=== PATIENT | female | born 1935 | race Caucasian/White ===

== ENCOUNTER 2017-05-26 08:07 | Inpatient (IN) | payer OTHER ==
[~2017-05-26] VITALS: Ht 160 cm; Wt 69.1 kg
[2017-05-26] VITALS (7 sets, daily range): BP systolic 108–170; BP diastolic 50–75
--- NOTE | ~2017-05-26 | EKG ---
[place] [address] [facility] [place] [address] ELECTROCARDIOGRAM REPORT Name: KARANNOLA J Room #: 216-P ADM IN M.R.#: [id number] Admission: 05/26/17 Attend Phys: Cihlo Lopez MD Discharge: Date of : 37 Report #: [id number] THIS REPORT FOR: //name// [facility] ED Test Date: 2017-05-26 Test Time: 08:43:21 Pat Name: NOLA RUSSO Department: Room: 216 Gender: F Exhibit Cleaner: [email or web address] : 1935 Requested By: Pari Arnold Order Number: [id number] MD: Jesse Mooney Measurements Intervals Dexter Rate: 63 P: 68 CO: 143 QRS: -20 QRSD: 150 T: 48 QT: 485 QTc: 497 Interpretive Statements Sinus rhythm Left bundle branch block Compared to ECG 05/16/2004 12:58:48 No significant changes Electronically Signed On 05-26-2017 12:47:23 HYDRAULIC LIFT OPERATOR by Jesse Mooney [email or web address] <ELECTRONICALLY SIGNED> By: Jesse Mooney MD, [facility] 05/26/17 1247 Jesse Mooney MD, [facility] /EPI
[~2017-05-26 08:07] MED LIST: ADULT LOW DOSE81 MG PO; APAP650 PO; CALCITRIOL0.25 MCG PO; CALCIUM OYSTER500 MG PO; FLEXERIL PO; MOBIC15 MG PO; NEURONTIN 300300 M1 PO; PEPCID40 MG PO; PREVACID 30MG C30 M1 PO; PROTONIX40 M2 PO; RESTORIL30 MG PO; SYNTHROID125 MCG PO
[2017-05-26] MEDS ORDERED: DEXILANT60 MG PO (08:49)
[2017-05-26] MEDS ORDERED: CYMBALTA60 MG PO (08:50)
[2017-05-26] MEDS ORDERED: SYNTHROID112 MCG PO (08:50)
[2017-05-26] MEDS ORDERED: LASIX 20 MG TAB20 MG PO (08:51)
[2017-05-26] MEDS ORDERED: ULTRAM 50MG TAB50 MG PO (08:51)
[2017-05-26] MEDS ORDERED: CARVEDILOL3.125 MG PO (08:52)
[2017-05-26] MEDS ORDERED: VITAMIN B-12500 MCG PO (08:54)
[2017-05-26] MEDS ORDERED: VITAMIN D32000 UNI1 PO (08:55)
[2017-05-26 08:57] LABS: HEMATOCRIT 42.5 % (37.0-47.0); HEMOGLOBIN 14.1 gm/dL (12.0-15.0); MCH 29.6 pg (26.0-34.0); MCHC 33.2 g/dL (28.0-37.0); MCV 89.1 fL (80.0-100.0); PLATELET COUNT 211 thou/uL (150-400); RBC 4.77 mil/uL (4.20-5.00); RDW 13.1 % (10.5-14.5); WBC 4.3 thou/uL (4.0-11.0)
[2017-05-26] MEDS ORDERED: PRAVACHOL20 MG PO (08:57)
[2017-05-26] MEDS ORDERED: ZANAFLEX4 MG PO (08:58)
[2017-05-26 09:00] LABS: MANUAL DIFF YES
[2017-05-26 09:06] LABS: ANION GAP 9 mmol/L (7-16); BUN 10 mg/dL (7-18); CALCIUM 8.8 mg/dL (8.5-10.1); CHLORIDE 105 mmol/L (98-107); CO2 27 mmol/L (21-32); GLUCOSE 108 mg/dL (74-106); POTASSIUM 3.3 mmol/L (3.5-5.1); SODIUM 141 mmol/L (136-145)
[2017-05-26 09:15] LABS: ALBUMIN 3.8 g/dL (3.4-5.0); ALKALINE PHOSPHATASE 79 U/L (46-116); DIRECT BILIRUBIN < 0.1 mg/dL (<0.1-0.3); SGOT 69 U/L (15-37); SGPT 29 U/L (30-65); TOTAL BILIRUBIN 0.3 mg/dL (<0.1-1.0); TROPONIN-I < 0.04 ng/mL (<0.06)
[2017-05-26 09:23] LABS: PLATELET ESTIMATE NORMAL; TOTAL CELL COUNT 100
[2017-05-26 10:43] LABS: URINE BILIRUBIN NEGATIVE (Negative); URINE BLOOD TRACE (Negative); URINE COLOR YELLOW; URINE GLUCOSE-RANDOM* NEGATIVE (Negative); URINE KETONES 2+ (Negative); URINE NITRITE NEGATIVE (Negative); URINE PROTEIN (DIPSTICK) NEGATIVE (Negative); URINE SPECIFIC GRAVITY <= 1.005 (1.005-1.035); URINE UROBILINOGEN 0.2 E.U./dl (0.2-1.0)
[2017-05-27 03:59] VITALS: BP 117/46
[2017-05-27 07:38] VITALS: BP 130/49
[2017-05-27 08:59] LABS: MCH 29.8 pg (26.0-34.0); MCHC 33.2 g/dL (28.0-37.0); MCV 89.7 fL (80.0-100.0); RBC 4.01 mil/uL (4.20-5.00); RDW 13.6 % (10.5-14.5); WBC 3.9 thou/uL (4.0-11.0)
[2017-05-27 09:06] LABS: CALCIUM 7.5 mg/dL (8.5-10.1); CREATININE 0.9 mg/dL (0.6-1.0); POTASSIUM 3.7 mmol/L (3.5-5.1)
[2017-05-27 11:30] VITALS: BP 137/59
[2017-05-27 15:30] VITALS: BP 145/50
[2017-05-27 19:32] VITALS: BP 145/62
[2017-05-28 03:20] VITALS: BP 148/64
[2017-05-28 07:26] VITALS: BP 152/64
[2017-05-28] MEDS ORDERED: ONDANSETRON HCL4 M2 PO (09:06)
[2017-05-28 10:09] VITALS: BP 152/64
== END 2017-05-28 10:36 | disposition home or self-care (01) | DRG 392 ==
LOC: ER 08:07 → EROBS 09:27 → 2N 09:27
PROVIDERS: Emergency Medicine; Family Medicine
DX: K52.9 Noninfective gastroenteritis and colitis, unspecified (principal); N17.9 Acute kidney failure, unspecified; E87.6 Hypokalemia; M19.90 Unspecified osteoarthritis, unspecified site; M79.7 Fibromyalgia; R74.0 Nonspecific elevation of levels of transaminase and lactic acid dehydrogenase [LDH]; E89.0 Postprocedural hypothyroidism; Z90.710 Acquired absence of both cervix and uterus; Z85.820 Personal history of malignant melanoma of skin; Z79.899 Other long term (current) drug therapy; Z88.5 Allergy status to narcotic agent; Z88.8 Allergy status to other drugs, medicaments and biological substances
CPT/HCPCS: 10081

== ENCOUNTER → 2017-09-28 | Outpatient (CLI) | payer OTHER ==
[~2017-09-28] MED LIST changes: +CARVEDILOL3.125 MG PO; +CYMBALTA60 MG PO; +DEXILANT60 MG PO; +LASIX 20 MG TAB20 MG PO; +ONDANSETRON HCL4 M2 PO; +PRAVACHOL20 MG PO; +SYNTHROID112 MCG PO; +ULTRAM 50MG TAB50 MG PO; +VITAMIN B-12500 MCG PO; +VITAMIN D32000 UNI1 PO; +ZANAFLEX4 MG PO
[2017-09-28 08:50] LABS: CREATININE 1.1 mg/dL (0.6-1.0)
== END ==
LOC: CAT 05:56
PROVIDERS: Family Medicine
DX: I25.10 Atherosclerotic heart disease of native coronary artery without angina pectoris (principal); K44.9 Diaphragmatic hernia without obstruction or gangrene

== ENCOUNTER → 2019-05-22 | Outpatient (CLI) | payer OTHER | LOC: MRI 14:26 | DX: M47.816 Spondylosis without myelopathy or radiculopathy, lumbar region (principal); M53.86 Other specified dorsopathies, lumbar region; M25.78 Osteophyte, vertebrae; M12.88 Other specific arthropathies, not elsewhere classified, other specified site; M48.062 Spinal stenosis, lumbar region with neurogenic claudication; M51.27 Other intervertebral disc displacement, lumbosacral region ==

== ENCOUNTER → 2019-05-30 | Outpatient (CLI) | payer OTHER ==
[~2019-05-30] VITALS: Ht 162.6 cm; Wt 71.2 kg
[~2019-05-30] MED LIST changes: +MEDROLDOSEPACK PO; +MICROZIDE12.5 MG PO; +NEXIUM20 M1 PO; -SYNTHROID112 MCG PO; +SYNTHROID75 MCG PO; +TOPROL XL25 MG PO
--- NOTE | ~2019-05-30 | HPC ---
[facility] [address] [place] [address] PAIN MANAGEMENT CONSULTATION Name: NOLA RUSSO [id number] Admission: 05/30/19 Attend Phys: Ralph Vera DO Discharge: Date of : 37 Report #: [id number] THIS REPORT FOR: //name// CC: Ralph Lopez MD DATE OF SERVICE: 05/30/2019 REFERRING PHYSICIAN: Chilo Lopez MD CHIEF COMPLAINT: Low back pain, left lower extremity pain with paresthesias. HISTORY OF PRESENT ILLNESS: As you know, patient is an 83-year-old female who has longstanding history of low back pain, left lower extremity pain with paresthesias. There was an exacerbation of symptoms began 03/27/2019. She denies injury or trauma that may have led to symptom occurrence. She has tried [id number] medications without benefit. She has been undergoing physical therapy again without significant benefit. She sought further evaluation through her PCP and she was subsequently referred for MRI due to lack of improvement. MRI showed changes at the L3-L4 and L4-L5 level concerning enough that the patient was then referred to our clinic to discuss treatment options for suspected lumbar radiculopathy. The patient denies injury or trauma that may have led to symptom occurrence. The patient reports today pain is continuous and steady with intermittent exacerbations. She indicates pain is burning, shooting, aching, tender, numbness and tingling when describing pain, places current pain score at 8/10, daily average at 8/10, worst pain has been is 10/10. The patient states pain is exacerbated with "being on my feet." Improves with "lying flat on my back." She has been referred to our service to discuss treatment options for suspected lumbar radiculopathy. PAST MEDICAL HISTORY: 1. Osteoarthritis. 2. Chronic kidney disease. 3. Hypothyroidism. 4. Fibromyalgia. 5. Chronic anemia. 6. Coronary artery disease. 7. History of thyroid cancer. PAST SURGICAL HISTORY: 1. Partial thyroidectomy. 2. Total thyroidectomy with partial parathyroidectomy. 3. Hysterectomy. [facility] [address] [place] [address] PAIN MANAGEMENT CONSULTATION Name: NOLA RUSSO Room #: REG [facility].#: [id number] Admission: 05/30/19 Attend Phys: Ralph Vera DO Discharge: Date of : 37 Report #: [id number] 4. 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 SOCIAL HISTORY: The patient denies tobacco, alcohol, IV or illicit drug use. She is a lifelong housewife. She is not receiving workmen's compensation or is she trying to obtain disability benefits. She is not in litigation in regards to pain. She is accompanied by a family member present in room today. REVIEW OF SYSTEMS: Positive for decrease in appetite, wearing corrective eyewear, cataracts, hearing loss with tinnitus, shortness of breath walking or lying flat, loss of appetite, nocturia, irregular menses, rash and itching, changes in hair and nail texture, numbness and tingling sensations, mild tremors, depression, thyroid disease and low back pain, left lower extremity pain and paresthesias. All other review of systems negative per 12-point review of systems other than those listed in history of present illness. Pain impact score 32/70 indicating moderate interference of daily activities secondary to pain. ALLERGIES: MORPHINE, CODEINE, DEMEROL, PENTOBARBITAL, PHENERGAN. CURRENT MEDICATIONS: Acetaminophen 650 mg p.r.n., aspirin 81 mg per day, calcitriol 0.25 mg once a day. IMAGING: MRI lumbar spine obtained 05/22/2019 shows L1-L2 with posterior disk osteophyte complex, bilateral facet arthropathy and ligamentum flavum hypertrophy resulting in mild central canal stenosis and mild neural foraminal narrowing. L2-L3 bilateral facet hypertrophy and ligamentum flavum hypertrophy. No significant central canal stenosis, severe right and mild left neural foraminal narrowing. L3-L4 severe bilateral facet hypertrophy, posterior central canal and broad-based posterior disk osteophyte complex and bulging resulting in severe central canal stenosis with measurement of the canal of 6 mm, moderate left and mild right neural foraminal narrowing. L4-L5, severe bilateral facet hypertrophy, ligamentum flavum hypertrophy resulting in no significant central canal stenosis, severe left and no right neural foraminal narrowing. L5-S1, broad-based posterior disk bulge, bilateral facet hypertrophy and ligamentum flavum hypertrophy resulting in no central canal or neural foraminal stenosis. PQRS: The patient has arthritic changes of the lumbar spine, bilateral hips, bilateral knees, bilateral shoulders and hands. No rheumatoid arthritis. She is placing pain intensity 8/10. She is not a fall risk, but has had a fall in last 3 months due to tripping over objects at home. This has been rectified by adjusting home conditions. She is not on blood thinners, but is treated for hypertension. She is not on opioids and has a low opiate addiction potential. Pain impact score 32/70, moderate interference of daily activities secondary to pain. [facility] [address] [place] [address] PAIN MANAGEMENT CONSULTATION Name: NOLA RUSSO Room #: REG [facility] Franco#: [id number] Admission: 05/30/19 Attend Phys: Ralph Vera DO Discharge: Date of : 37 Report #: [id number] PHYSICAL EXAMINATION: VITAL SIGNS: Blood pressure 135/62, pulse 75, respiratory rate 16 and unlabored. The patient is 96% on room air. Height 5 feet 4 inches tall, weight 157 pounds, BMI calculated 26.9. GENERAL: Well-developed, well-nourished, well-hydrated 83-year-old female appearing stated age. She is in no acute distress, awake, alert and oriented x 3. Current pain score is 8/10. HEENT: Normocephalic, atraumatic. Pupils equal, round, reactive to light. Extraocular muscles are intact. Sclerae nonicteric without injection. NEUROLOGIC: Cranial nerves 2 through 12 grossly intact. Speech fluent. The patient deemed a fair historian. LUNGS: Clear, no wheeze, rhonchi or rales. CARDIOVASCULAR: Regular. No appreciable gallop, no rub. ABDOMEN: Soft, nontender with normoactive bowel sounds. EXTREMITIES: Show no clubbing, no cyanosis, and no edema. MUSCULOSKELETAL: Lower extremity strength appears symmetrical, but deconditioned bilaterally. Seated straight leg raising negative. Supine straight leg raising is positive bilaterally. Ida's test is negative. Modified Gaenslen's positive for axial low back pain. Ankle clonus negative. Babinski is negative. Gait is antalgic. Appears to be favoring right lower extremity over left. Lumbar provocation testing is met with increased pain axially, no radiation of symptoms. ASSESSMENT: 1. Symptomatic lumbar radiculopathy. 2. Severe central canal stenosis of lumbar spine. 3. Severe neural foraminal stenosis of lumbar spine. 4. Severe lumbar degeneration and facet arthropathy. 5. Chronic intractable pain. PLAN: 1. Based on today's physical exam and history the patient has provided, the description the patient uses in regards to the pain as well as the distribution of symptoms and the findings of her MRI, likely source of the patient's pain is the central canal stenosis noted at the L3-L4 level, which is considered severe with canal narrowing to 6 mm. The patient and I discussed at length the treatment options for central canal stenosis. Following was discussed with the patient today. We discussed physical therapy, stretching exercises and core strengthening, for which the patient has been involved and should continue. We discussed medication management with addition of a neuropathic pain medication for pain control. We discussed epidural injection under fluoroscopic guidance for which the patient was referred to our clinic. We also discussed surgical options including spinal cord stimulator therapy and ultimately surgical decompression of the L3-L4 level and possible decompression of the severe neural foraminal stenosis noted at multiple levels. After reviewing the [facility] and [address] [address] PAIN MANAGEMENT CONSULTATION Name: NOLA RUSSO Room #: REG [facility] Franco#: [id number] Admission: 05/30/19 Attend Phys: Ralph Vera DO Discharge: Date of : 37 Report #: [id number] benefits of all the proposed treatment options, patient chose to move forward with a lumbar epidural injection under fluoroscopic guidance. 2. The patient was advised of the risks and benefits of a lumbar epidural injection. These risks include but are not necessarily limited to bleeding, bruising, infection, worsening pain, no relief of pain, also risk of temporary or permanent muscle weakness, temporary or permanent nerve damage, possible paralysis, post-dural puncture headache and . The patient states understood and wished to proceed. 3. No medication changes made at today's visit. The patient will continue current medical therapy as prior prescribed. 4. We will see the patient back in followup visit in approximately 30 days. At that time, review the efficacy of today's epidural injection and determine if next in the series of epidural injections might be warranted. 5. We wish to thank Dr. Lopez and his nurse practitioner, Live Bianchi for the opportunity to see this patient in consultation. We will keep you apprised of the patient's response to treatment as we address severe central canal stenosis of the lumbar spine and subsequent lumbar radicular symptoms. Again, we wish to thank you for the opportunity to see this patient in consultation. PROCEDURE NOTE DESCRIPTION OF PROCEDURE: Lumbar epidural steroid injection under fluoroscopic guidance. This is the first procedure of the first series that the patient is undergoing. After obtaining written consent, the patient was taken back to the fluoroscopy suite, placed in a prone position with pillow under the abdomen to decrease lumbar lordosis. The skin overlying the lumbosacral area was then prepped and draped in aseptic fashion. The lumbar vertebral interspace was then identified by AP fluoroscopy. The skin and subcutaneous tissue overlying the target site of injection was anesthetized with 3 mL 1% lidocaine. A 20 gauge 3-1/2 inch Tuohy needle was then advanced under fluoroscopic guidance towards the epidural space using a parasagittal approach. The epidural space was identified using loss of resistance to air technique. After negative aspiration for heme or cerebrospinal fluid, a total of 1 mL of Omnipaque was injected. A lumbar epidurogram was confirmed using both AP and lateral fluoroscopy. After negative aspiration for heme or cerebrospinal fluid, 5 mL of a solution containing 2 mL 40 mg per mL, 80 mg total triamcinolone along with 3 mL lidocaine 1% was injected in increments. Contrast spread was noted posterior epidural space. The needle was then retracted approximately half way and needle tract flushed with 1 mL of 1% lidocaine. Needle was then removed. There were no apparent sensory or motor deficits in the lower extremity following the procedure. A sterile bandage was placed over the injection site. [facility] [address] [place] [address] PAIN MANAGEMENT CONSULTATION Name: KARANNOLA J Room #: REG [facility]#: [id number] Admission: 05/30/19 Attend Phys: Ralph Vera DO Discharge: Date of : 37 Report #: [id number] The heart rate, pulse, oximetry and blood pressure were continuously monitored after the procedure. There were no apparent complications. The patient tolerated the procedure well and was carefully escorted to the recovery room in stable condition. There were no apparent complications. After meeting discharge criteria, the patient was then discharged home. By: [id number] Ralph Vera DO /nt
[2019-05-30 15:37] VITALS: BP 135/62
--- NOTE | 2019-05-30 16:10 | NUR ---
Pain Clinic Assessment: 1. History of Osteoarthritis: BACK Left Lower Extremity Left Upper Extremity Right Upper Extremity Right Lower Extremity History of Rheumatoid Arthritis: Not Applicable 2. Height: 5 ft. 4 in. 162.6 cm. Weight: 157.0 lb. oz. 71.215 kg. Patient's BMI: 26.9 3. Vital Signs: BP: 135/62 Pulse: 75 Resp: 16 Temp: 02 Sat: 96 ECG Mon: 4. Pain Intensity: 8 5. Fall Risk: Dizziness: N Needs help standing or walking: N Fallen in the last 3 months: Y Fall risk comments: 6. Patient on Blood Thinner: None 7. History of Hypertension: Y 8. Opioid Therapy greater than 6 weeks: N Opiate Contract Signed: 9. Risk Assessment Tool Provided: 10. Functional Assessment Tool: 11. Recreational Drug Use: Never Drug Type: Tobacco Use: Never Smoker Tobacco Type: Amount or Packs/day: How Many Years: Alcohol Use: No Frequency: Quant:
== END | disposition home or self-care (01) ==
LOC: PAIN 07:04
DX: M51.16 Intervertebral disc disorders with radiculopathy, lumbar region (principal); M47.26 Other spondylosis with radiculopathy, lumbar region; M48.061 Spinal stenosis, lumbar region without neurogenic claudication; G89.29 Other chronic pain; N18.9 Chronic kidney disease, unspecified; M19.90 Unspecified osteoarthritis, unspecified site; E03.9 Hypothyroidism, unspecified; M79.7 Fibromyalgia; D64.89 Other specified anemias; I25.10 Atherosclerotic heart disease of native coronary artery without angina pectoris; Z90.710 Acquired absence of both cervix and uterus; Z85.820 Personal history of malignant melanoma of skin; Z98.890 Other specified postprocedural states; Z79.899 Other long term (current) drug therapy; Z85.850 Personal history of malignant neoplasm of thyroid

== ENCOUNTER → 2019-06-27 | Outpatient (CLI) | payer OTHER ==
[~2019-06-27] VITALS: Ht 162.6 cm; Wt 75.8 kg
[2019-06-27 12:59] VITALS: BP 121/56
--- NOTE | 2019-06-27 13:19 | NUR ---
Pain Clinic Assessment: 1. History of Osteoarthritis: BACK Left Lower Extremity Left Upper Extremity Right Upper Extremity Right Lower Extremity History of Rheumatoid Arthritis: DENIES 2. Height: 5 ft. 4 in. 162.6 cm. Weight: 167.2 lb. oz. 75.841 kg. Patient's BMI: 28.7 3. Vital Signs: BP: 121/56 Pulse: 80 Resp: 14 Temp: 02 Sat: ECG Mon: 4. Pain Intensity: 0 5. Fall Risk: Dizziness: N Needs help standing or walking: N Fallen in the last 3 months: N Fall risk comments: 6. Patient on Blood Thinner: None 7. History of Hypertension: Y 8. Opioid Therapy greater than 6 weeks: N Opiate Contract Signed: 9. Risk Assessment Tool Provided: 10. Functional Assessment Tool: 11. Recreational Drug Use: Never Drug Type: Tobacco Use: Never Smoker Tobacco Type: Amount or Packs/day: How Many Years: Alcohol Use: No Frequency: Quant:
--- NOTE | 2019-07-03 07:54 | HPC ---
[address] [place] [address] PAIN MANAGEMENT CONSULTATION Name: GEM RUSSODeclan Conroy Room #: [facility] [id number] Admission: 06/27/19 Attend Phys: Ralph Vera DO Discharge: Date of : 36 Report #: [id number] THIS REPORT FOR: //name// CC: Ralph Lopez MD DATE OF SERVICE: 06/27/2019 CHIEF COMPLAINT: Low back pain, left lower extremity pain and paresthesias. HISTORY OF PRESENT ILLNESS: As you know, the patient is a very pleasant 83-year-old female who has had a longstanding history of low back pain, left lower extremity pain with paresthesias. She had an exacerbation of symptoms 03/27/2019, denying any injury or trauma. We saw the patient in consultation per the request of Dr. Chilo Lopez on 05/30/2019 where she was diagnosed with lumbar radiculopathy secondary to progressively worsening central canal stenosis. She underwent a lumbar epidural injection at that visit with excellent benefit. She is now placing pain score 0/10. She is extremely pleased with response to the epidural returning only in followup visit to discuss treatment options if her pain does return. The patient reports she was pain free the next day after the injection, has been pain free the entire time. She returns to discuss options for treatment if her pain does return. ALLERGIES: MORPHINE, CODEINE, DEMEROL, PHENOBARBITAL, PHENERGAN. CURRENT MEDICATIONS: Acetaminophen 650 mg p.r.n., aspirin 81 mg per day, calcitriol 0.25 mg once a day. SOCIAL HISTORY: The patient denies tobacco, alcohol or IV illicit drug use. 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 IMAGING: No new imaging available. PQRS: The patient has known arthritic changes of the lumbar spine, bilateral hips, bilateral knees, bilateral shoulders and hands. No rheumatoid arthritis. Pain intensity today 0/10. She is not a fall risk, has not had a fall in last 3 months. She is not on blood thinners, but is treated for hypertension. She is not on chronic opioids. She has a low opiate addiction potential. Pain impact score 2/70, indicating mild interference of daily activity secondary to pain. PHYSICAL EXAMINATION: VITAL SIGNS: Blood pressure 121/56, pulse 80, respiratory rate 14 and unlabored. The patient is 100% on room air. Height 5 feet 4 inches tall, weight 167.2 pounds, BMI calculated 28.7. GENERAL: Well-developed, well-nourished, well-hydrated 83[place] [address] PAIN MANAGEMENT CONSULTATION Name: NOLA RUSSO Room #: REG [facility] Joan#: [id number] Admission: 06/27/19 Attend Phys: Ralph Vera DO Discharge: Date of : 37 Report #: [id number] appearing stated age, pain is rated at 0/10. HEENT: Normocephalic, atraumatic. Pupils equal, round, reactive to light. EXTREMITIES: Show no clubbing, no cyanosis, and no edema. MUSCULOSKELETAL: Lower extremity strength is symmetrical again today 5/5. There is deconditioning noted. Seated straight leg raising is negative. Supine straight leg raising is positive at 70 degrees. Ida's test is negative. ASSESSMENT: 1. Symptomatic lumbar radiculopathy. 2. 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 3. Severe neural foraminal stenosis of lumbar spine. 4. Severe lumbar degeneration and facet arthropathy. 5. Chronic intractable pain. PLAN: 1. The patient returns today in followup visit indicating near 100% improvement in overall pain with the previous epidural injection. She is extremely pleased with response to epidural injection, returning only in followup visit to discuss options for treatment if her pain does return. We are pleased to see the patient has done very well with the epidural injection. At this time, we would recommend delaying any further adjustments in therapy or treatment options. I recommend the patient return to activities as tolerated. We did discuss that if her pain does return, return for the next in the series of epidural injections. 2. We did discuss other treatment options with the patient today including physical therapy, stretching exercises and core strengthening if her pain does begin to return as a way to potentially snow off continuing pain issues. We discussed medication management utilizing neuropathic pain medications, low dose opioid for pain control if necessary. The patient cannot take nonsteroidal anti-inflammatories due to underlying chronic kidney disease. We also discussed having the patient undergo next in the series of epidural injections and surgical options. The patient will keep in mind her treatment options if her pain does return. 3. We are pleased to see the patient has done well with our epidural injection. We will see her back in followup visit on an as needed basis. We will be returning her care to her primary care physician, but be available to see her back if her pain does return. <ELECTRONICALLY SIGNED> By: Ralph Vera DO 07/03/19 0754 [id number] Ralph Vera DO /nt
== END ==
LOC: PAIN 06:57
DX: M48.061 Spinal stenosis, lumbar region without neurogenic claudication (principal); M47.27 Other spondylosis with radiculopathy, lumbosacral region; M51.16 Intervertebral disc disorders with radiculopathy, lumbar region; M12.88 Other specific arthropathies, not elsewhere classified, other specified site; G89.4 Chronic pain syndrome

== ENCOUNTER 2019-11-29 19:18 | Emergency (ER) | payer OTHER ==
[~2019-11-29] VITALS: Ht 162.6 cm; Wt 72.6 kg
[2019-11-29] MEDS ORDERED: ZOFRAN ODT4 MG PO (20:26)
[2019-11-29] MEDS ORDERED: NORCO 5-325 TA1 EAC1 PO (20:26)
[2019-11-29 20:50] VITALS: BP 132/52
== END 2019-11-29 20:47 | disposition home or self-care (01) ==
LOC: ER 19:18
DX: S43.401A Unspecified sprain of right shoulder joint, initial encounter (principal); R07.89 Other chest pain; Z79.899 Other long term (current) drug therapy; Z88.5 Allergy status to narcotic agent; Z88.8 Allergy status to other drugs, medicaments and biological substances; Z79.82 Long term (current) use of aspirin; W19.XXXA Unspecified fall, initial encounter; Y93.89 Activity, other specified; Y92.89 Other specified places as the place of occurrence of the external cause; Y99.8 Other external cause status

== ENCOUNTER → 2019-12-03 | Outpatient (CLI) | payer OTHER ==
[~2019-12-03] MED LIST changes: +NORCO 5-325 TA1 EAC1 PO; +ZOFRAN ODT4 MG PO
== END ==
LOC: RAD 15:42
PROVIDERS: ATTEND Nurse Practitioner
DX: M19.011 Primary osteoarthritis, right shoulder (principal); K44.9 Diaphragmatic hernia without obstruction or gangrene; M47.814 Spondylosis without myelopathy or radiculopathy, thoracic region

== ENCOUNTER → 2020-02-19 | Outpatient (CLI) | payer OTHER ==
[~2020-02-19] VITALS: Ht 162.6 cm; Wt 75.9 kg
[2020-02-19 09:11] VITALS: BP 119/57
--- NOTE | 2020-02-19 09:21 | NUR ---
Pain Clinic Assessment: 1. History of Osteoarthritis: BACK Left Lower Extremity Left Upper Extremity Right Upper Extremity Right Lower Extremity History of Rheumatoid Arthritis: DENIES 2. Height: 5 ft. 4 in. 162.6 cm. Weight: 167.4 lb. oz. 75.932 kg. Patient's BMI: 28.7 3. Vital Signs: BP: 119/57 Pulse: 71 Resp: 16 Temp: 02 Sat: 97 ECG Mon: 4. Pain Intensity: 0-SITTING; 10 AFTER UP 5. Fall Risk: Dizziness: N Needs help standing or walking: N Fallen in the last 3 months: N Fall risk comments: 6. Patient on Blood Thinner: None 7. History of Hypertension: Y 8. Opioid Therapy greater than 6 weeks: N Opiate Contract Signed: 9. Risk Assessment Tool Provided: 10. Functional Assessment Tool: 11. Recreational Drug Use: Never Drug Type: Tobacco Use: Never Smoker Tobacco Type: Amount or Packs/day: How Many Years: Alcohol Use: No Frequency: Quant:
--- NOTE | 2020-02-19 12:53 | HPC ---
[facility] [address] [place] [address] PAIN MANAGEMENT CONSULTATION Name: NOLA RUSSO Room #: REG [facility].#: [id number] Admission: 02/19/20 Attend Phys: Ralph Vera DO Discharge: Date of : 36 Report #: [id number] THIS REPORT FOR: cc: Chilo Lopez MD, Neal A. MD Johnson, James E. DO ~ DATE OF SERVICE: 02/19/2020 REFERRING PHYSICIAN: Chilo Lopez MD CHIEF COMPLAINT: Low back pain. HISTORY OF PRESENT ILLNESS: As you know, the patient is a very pleasant 84-year-old female who has returned today in followup visit with recurrent low back pain. We last saw the patient on 06/27/2019 where she underwent a lumbar epidural injection under fluoroscopic guidance with excellent benefit. She reports near 100% improvement in overall pain lasting for nearly 8 months. Unfortunately, her symptoms have begun to return. She returns today in follow-up visit for the next in the series of epidural injections in hopes of improving pain. Pain is rated today anywhere from 0-10/10 depending on activity. Pain begins in low back and intermittently radiates into the left lower extremity. ALLERGIES: MORPHINE, CODEINE, DEMEROL, PHENOBARBITAL AND PHENERGAN. CURRENT MEDICATIONS: Cholecalciferol, pravastatin, tizanidine, omeprazole, hydrochlorothiazide, metoprolol, ondansetron, cyanocobalamin, duloxetine, levothyroxine, acetaminophen, aspirin, temazepam, gabapentin, calcitriol and calcium carbonate. SOCIAL HISTORY: The patient denies tobacco, alcohol, IV or illicit drug use. She is a lifelong housewife. She is unaccompanied at today's visit. IMAGING: No new imaging available. PQRS: The patient has arthritic changes of the lumbar spine, bilateral shoulders, bilateral hands, bilateral hips and knees. No rheumatoid arthritis. She is placing pain anywhere from 0-10/10 depending on activity. She is not a fall risk nor has she had a fall in last 3 months. She is not on blood thinners, but is treated for hypertension. She is not on any chronic opioids and has a low opioid addiction potential based on our assessment tool. Pain impact 32 of 70 indicating moderate interference of daily activities secondary to pain. PHYSICAL EXAMINATION: [facility] [address] [place] [address] PAIN MANAGEMENT CONSULTATION Name: KARANNOLA J Room #: REG [facility] Joan#: [id number] Admission: 02/19/20 Attend Phys: Ralph Vera DO Discharge: Date of : 36 Report #: [id number] VITAL SIGNS: Blood pressure 119/57, pulse 71, respiratory rate 16 and unlabored. The patient is 97% on room air. Height 5 feet 4 inches tall, weight 167.4 pounds, BMI calculated 28.7. GENERAL: Well-developed, well-nourished, well-hydrated 84-year-old female appearing her stated age, placing current pain score anywhere from 0-10/10 depending on activity. HEENT: Normocephalic, atraumatic. Pupils equal, round and reactive. EXTREMITIES: Show no clubbing, no cyanosis. No appreciable edema. MUSCULOSKELETAL: Lower extremity strength is rated at 5/5. There is a slight deconditioning noted bilaterally. Muscle bulk and tone appears symmetrical in comparing lower extremities. Seated straight leg raising negative. Supine straight leg raising is positive on the left. Ida's test is negative. Modified Gaenslen's positive for axial low back pain. Ankle clonus negative. Babinski is negative. ASSESSMENT: 1. Symptomatic lumbar radiculopathy. 2. 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 3. 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 4. Severe lumbar degeneration. 5. Chronic intractable pain. PLAN: 1. The patient returns today in followup visit having noted excellent benefit with the epidural injection provided in June. Unfortunately, her symptoms have begun to return. She denies injury or trauma that may have led to symptom reoccurrence. She returns today to undergo next in the series of lumbar epidural injections. The patient has been advised of the risks and the benefits of a lumbar epidural injection. These risks include but are not necessarily limited to bleeding, bruising, infection, worsening of pain, no relief of pain, also risk of temporary or permanent muscle weakness, temporary or permanent nerve damage, possible paralysis and . The patient states understood and wished to proceed. 2. No medication changes made at today's visit. The patient will continue current medical therapy as prior prescribed. 3. We will see the patient back in followup visit on an as needed basis for possible next in the series of epidural injections. We have placed a tentative appointment for the patient next month in case she wishes to undergo next in the series of epidural injections. Otherwise, she will follow up on an as needed basis. PROCEDURE NOTE DESCRIPTION OF PROCEDURE: L5-S1 left paramedian epidural steroid injection under fluoroscopic guidance. [address] [address] PAIN MANAGEMENT CONSULTATION Name: NOLA RUSSO Room #: REG [facility]#: [id number] Admission: 02/19/20 Attend Phys: Ralph Vera DO Discharge: Date of : 36 Report #: [id number] This is the second procedure of the first series that the patient is undergoing. After obtaining written consent, the patient was taken back to the fluoroscopy suite, placed in a prone position with pillow under the abdomen to decrease lumbar lordosis. The skin overlying the lumbosacral area was then prepped and draped in aseptic fashion. The L5-S1 vertebral interspace was then identified by AP fluoroscopy. The skin and subcutaneous tissue overlying the target site of injection was anesthetized with 3 mL 1% lidocaine. A 20-gauge 3-1/2 inch Tuohy needle was then advanced under fluoroscopic guidance towards the epidural space using a left paramedian approach. The epidural space was identified using loss of resistance to air technique. After negative aspiration for heme or cerebrospinal fluid, a total of 1 mL of Omnipaque was injected. A lumbar epidurogram was confirmed using both AP and lateral fluoroscopy. After negative aspiration for heme or cerebrospinal fluid, 5 mL of a solution containing 2 mL 40 mg per mL, 80 mg total triamcinolone along with 3 mL of lidocaine 1% was injected in increments. Contrast spread was noted posterior epidural space. The needle was then retracted approximately half way and needle tract flushed with 1 mL of 1% lidocaine. Needle was then removed. There were no apparent sensory or motor deficits in the lower extremity following the procedure. A sterile bandage was placed over the injection site. The heart rate, pulse, oximetry and blood pressure were continuously monitored after the procedure. There were no apparent complications. The patient tolerate the procedure well and was carefully escorted to the recovery room in stable condition. There were no apparent complications. After meeting discharge criteria, the patient was then discharged home. <ELECTRONICALLY SIGNED> By: Ralph Vera DO 02/19/20 1253 [id number] Ralph Vera DO /nt
== END | disposition home or self-care (01) ==
LOC: PAIN 06:47
PROVIDERS: ATTEND Anesthesiology Pain Medicine
DX: M51.16 Intervertebral disc disorders with radiculopathy, lumbar region (principal); M48.061 Spinal stenosis, lumbar region without neurogenic claudication; G89.29 Other chronic pain; I10 Essential (primary) hypertension; M19.90 Unspecified osteoarthritis, unspecified site; Z98.890 Other specified postprocedural states; Z79.899 Other long term (current) drug therapy; Z79.82 Long term (current) use of aspirin; Z88.8 Allergy status to other drugs, medicaments and biological substances

== ENCOUNTER → 2020-03-18 | Outpatient (CLI) | payer OTHER ==
[~2020-03-18] VITALS: Ht 162.6 cm; Wt 75.6 kg
[~2020-03-18] MED LIST changes: +ULTRAM50 MG PO
[2020-03-18 09:57] VITALS: BP 121/62
--- NOTE | 2020-03-18 10:07 | NUR ---
Pain Clinic Assessment: 1. History of Osteoarthritis: BACK Left Lower Extremity Left Upper Extremity Right Upper Extremity Right Lower Extremity History of Rheumatoid Arthritis: DENIES 2. Height: 5 ft. 4 in. 162.6 cm. Weight: 166.6 lb. oz. 75.569 kg. Patient's BMI: 28.6 3. Vital Signs: BP: 121/62 Pulse: 71 Resp: 16 Temp: 02 Sat: 100 ECG Mon: 4. Pain Intensity: 5 5. Fall Risk: Dizziness: N Needs help standing or walking: N Fallen in the last 3 months: N Fall risk comments: 6. Patient on Blood Thinner: None 7. History of Hypertension: Y 8. Opioid Therapy greater than 6 weeks: N Opiate Contract Signed: 9. Risk Assessment Tool Provided: LOW-1 10. Functional Assessment Tool: 11. Recreational Drug Use: Never Drug Type: Tobacco Use: Never Smoker Tobacco Type: Amount or Packs/day: How Many Years: Alcohol Use: No Frequency: Quant:
--- NOTE | 2020-03-25 08:51 | HPC ---
[facility] [place] [address] PAIN MANAGEMENT CONSULTATION Name: NOLA RUSSO Room #: REG [facility] Joan#: [id number] Admission: 03/18/20 Attend Phys: Ralph Vera DO Discharge: Date of : 36 Report #: [id number] CC: Ralph Lopez MD DATE OF SERVICE: 03/18/2020 REFERRING PHYSICIAN: Chilo Lopez MD CHIEF COMPLAINT: Low back pain. HISTORY OF PRESENT ILLNESS: As you know, the patient is a very pleasant 84-year-old female returning in followup visit with pain score of 5/10. She indicates pain begins in the low back and radiates bilaterally. She describes the pain as more like a pressure sensation. Pain is exacerbated with standing, walking and activity, improves with lying down. She indicates no specific injury or trauma that may have led to symptom development. We saw the patient in consultation per your request on 05/30/2019, underwent LESI. She was lost to followup visit until 02/19/2020 when she returned for the next in the series of epidural injections. She returns today indicating pain improvement with the epidural injection of greater than 50% that is ongoing. She returns today for slight adjustments in medication management in hopes of improving pain. She indicates that she has been able to return to all activities of daily living without significant pain interference. She is pleased with the response to the epidural injection and wishes only minor changes in medication management to address intermittent pain. ALLERGIES: MORPHINE, CODEINE, DEMEROL, PHENOBARBITAL, PHENERGAN. CURRENT MEDICATIONS: Cholecalciferol, pravastatin, tizanidine, omeprazole, hydrochlorothiazide, metoprolol, ondansetron, cyanocobalamin, duloxetine, levothyroxine, acetaminophen, aspirin, temazepam, gabapentin, calcitriol and calcium carbonate. SOCIAL HISTORY: The patient denies tobacco, alcohol, IV or illicit drug use. 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 IMAGING: No new imaging available. PQRS: The patient has known arthritic changes of the lumbar spine, bilateral shoulders, hips, hands and knees. No rheumatoid arthritis. She is placing current pain score at 5/10. She is not a fall risk, has not had a fall in the last 3 months. She is not on blood thinners, but is treated for hypertension. She is not on any long-term opioids, has a low opiate addiction potential. Pain impact today 32/70, moderate interference of daily activities secondary to pain. PHYSICAL EXAMINATION: VITAL SIGNS: Blood pressure 121/62, pulse 71, respiratory rate 16 and unlabored. The patient is 100% on room air. Height 5 feet 4 inches tall, weight 166.6 pounds, BMI calculated 28.6. GENERAL: Well-developed, well-nourished, well-hydrated 84-year-old female appearing stated age, no acute distress, awake, alert and oriented. Pain is rated at 5/10. HEENT: Normocephalic, atraumatic. Pupils equal, round and reactive. Speech is fluent. EXTREMITIES: Show no clubbing, no cyanosis, no edema. MUSCULOSKELETAL: Seated straight leg raising negative. Supine straight leg raising remains positive on the left. Ida's test is negative. Gait appears improved, but mildly antalgic favoring left lower extremity. ASSESSMENT: 1. Symptomatic lumbar radiculopathy. 2. 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 3. 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 4. Severe lumbar degeneration. 5. Chronic intractable pain. PLAN: 1. The patient has returned today in followup visit have noting 50% improvement in overall pain, which is ongoing from the previous epidural injection provided in February. At this point, we have discussed the possibility of adjusting medications with the patient to provide improvement in analgesia with hopefully limited side effects. The patient and I did discuss the use of anti-inflammatories. She is concerned given her age and her kidney function that this would not be a viable treatment option. We adjusted our treatment course to address her symptoms with low dose opioid like medication. 2. The patient was provided prescription of tramadol 50 mg dose to take 1 tab p.o. b.i.d. p.r.n. I have given the patient #60 tablets with 2 refills. I have advised the patient to initially try half tab initially. If this is not beneficial, then increase to one tab. She will watch for side effects of sleepiness, disorientation, confusion, mental slowing and constipation with their use. She is to contact our clinic with any questions or concerns. Prescription was sent via e-scribed to local pharmacy. 3. We will see the patient back in followup visit in 3 months for medication management. Otherwise, see her back for epidural injections on an as needed basis. <ELECTRONICALLY SIGNED> By: Ralph Vera DO 03/25/20 0851 [id number] Ralph Vera DO /nt
== END ==
LOC: PAIN 06:52
PROVIDERS: ATTEND Anesthesiology Pain Medicine
DX: M51.16 Intervertebral disc disorders with radiculopathy, lumbar region (principal); M48.061 Spinal stenosis, lumbar region without neurogenic claudication; G89.29 Other chronic pain; Z88.8 Allergy status to other drugs, medicaments and biological substances; Z79.899 Other long term (current) drug therapy

== ENCOUNTER → 2020-11-25 | Outpatient (CLI) | payer OTHER ==
[~2020-11-25] VITALS: Ht 162.6 cm; Wt 75.2 kg
[~2020-11-25] MED LIST changes: +CALCIUM 500 +1 EACH PO; -CALCIUM OYSTER500 MG PO; +NEURONTIN 300M300 M2 PO; +SYNTHROID100 MC1 PO; -SYNTHROID75 MCG PO
--- NOTE | ~2020-11-25 | HPC ---
[facility] [place] [address] PAIN MANAGEMENT CONSULTATION Name: NOLA RUSSO Room #: REG [facility].#: [id number] Admission: 11/25/20 Attend Phys: Ralph Vera DO Discharge: Date of : 36 Report #: [id number] THIS REPORT FOR: cc: Chilo Lopez MD, Neal A. MD Johnson, James E. DO ~ DOC #: [id number] cc: MD Ralph Baltazar DO DATE OF SERVICE: 11/25/2020 REFERRING PHYSICIAN: Dr. Chilo Lopez CHIEF COMPLAINT: Low back pain, left lower extremity pain. HISTORY OF PRESENT ILLNESS: As you know, the patient is a very pleasant 85-year-old female returning in followup visit with pain score of around 9/10. As you are aware, the patient suffers from progressive lumbar radiculopathy secondary to severe neural foraminal stenosis affecting the L5 nerve root. She has trialled conservative treatment with the use of gabapentin and has undergone epidural injections in the past. She returns today to undergo next in the series of epidural injections in hopes of improving pain and to make adjustments in medication management if necessary. The patient denies new injury or trauma that may have led to symptom reoccurrence. ALLERGIES: MORPHINE, CODEINE, DEMEROL, PHENOBARBITAL, PHENERGAN. CURRENT MEDICATIONS: See chart. SOCIAL HISTORY: The patient denies tobacco, alcohol or IV or illicit drug use. She is unaccompanied at today's visit. IMAGING: No new imaging available. PQRS: The patient has known arthritic changes of lumbar spine, bilateral shoulders, hips, knees, hands and ankles. No rheumatoid arthritis. She is placing current pain score at 9/10. Not a fall risk, has not had a fall in last 3 months. She is not on blood thinners, but is treated for hypertension. She is not on chronic opioids, has a low opioid addiction potential based on our assessment tool. Pain impact is 32/70, moderate interference of daily activities secondary to pain. PHYSICAL EXAMINATION: VITAL SIGNS: Blood pressure 134/56, pulse is 72, respiratory rate 16 and unlabored. The patient is 96% on room air. Height 5 feet 4 inches tall, weight 165.8 pounds, BMI [place] 28.4[place] [address] PAIN MANAGEMENT CONSULTATION Name: NOLA RUSSO Room #: REG [facility] Joan#: [id number] Admission: 11/25/20 Attend Phys: Ralph Vera DO Discharge: Date of : 36 Report #: [id number] GENERAL: Well-developed, well-nourished, well-hydrated 85-year-old female appearing stated age, pain is rated today at around 9/10. HEENT: normocephalic, atraumatic. Pupils equal, round and responsive. EXTREMITIES: Show no clubbing, no cyanosis. No appreciable edema. MUSCULOSKELETAL: Seated straight leg raising negative. Supine straight leg raising positive on the left. Ida's test is negative. Gait appears antalgic, favoring left lower extremity over right. There is normal muscle bulk and tone when comparing lower extremities. There is no atrophy of musculature. ASSESSMENT: 1. Symptomatic lumbar radiculopathy. 2. Severe central canal stenosis of lumbar spine. 3. Severe neural foraminal stenosis of lumbar spine. 4. Severe lumbar degeneration. 5. Chronic intractable pain. PLAN: 1. The patient returns today in followup visit requesting a lumbar epidural injection under fluoroscopic guidance. We have adjusted the patient's medications, provided tramadol and gabapentin in the past with some benefit, unfortunately her symptoms continue. She returns to undergo a lumbar epidural injection today. She has been advised the risks and benefits of this procedure. These risks include but are not necessarily limited to bleeding, bruising, infection, worsening pain, no relief of pain, also risk of temporary or permanent muscle weakness, temporary or permanent nerve damage, possible paralysis, and . The patient states understood and wished to proceed. 2. We have recommended adjustments in her gabapentin therapy. Currently, she is taking 300 mg morning and 600 mg at night. She can titrate up on this medication if necessary to help with analgesic benefit. The following titration was provided: The patient will increase to 1 tab in the morning and 3 tabs at night for the next 3 nights, continue for those 3 nights. If no improvement in symptoms, no side effects, then increase to one morning and one at noon, 3 at night for 3 nights. If no improvement in symptoms, no side effects of sleepiness, disorientation, confusion, mental slowing or dysphoric effects, then increase to 2 tabs in the morning, one tab at noon, 3 tabs at night for 3 nights. If no improvement in symptoms, no side effects, then continue to 900 mg morning, 300 mg at noon and 900 mg at night. A prescription of this medication was sent to local pharmacy to assist in the titration of the medication. 3. We plan to see the patient back in followup visit on an as needed basis. We are hopeful that the epidural injection and adjustments in medication management provide analgesic benefit. She will contact our clinic if she wishes to move forward with any other treatment options including surgical consultation. PROCEDURE NOTE. DESCRIPTION OF PROCEDURE: L5-S1 left paramedian epidural steroid injection [facility] [address] [place] [address] PAIN MANAGEMENT CONSULTATION Name: NOLA RUSSO Room #: REG [facility]#: [id number] Admission: 11/25/20 Attend Phys: Ralph Vera DO Discharge: Date of : 36 Report #: [id number] under fluoroscopic guidance. After obtaining written consent, the patient was taken back to fluoroscopy suite, placed in prone position with pillow under abdomen to decrease lumbar lordosis. Skin overlying lumbosacral area prepped and draped in aseptic fashion. The L5-S1 vertebral interspace identified by AP fluoroscopy. Skin and subcutaneous tissue overlying target site injection anesthetized with 3 mL 1% lidocaine. A 20 gauge 3-1/2 inch Tuohy needle advanced under fluoroscopic guidance towards the epidural space using a left paramedian approach. Epidural space identified using loss of resistance to air technique. After negative aspiration for heme or cerebrospinal fluid, 0.5 mL of Omnipaque injected. Lumbar epidurogram was confirmed using both AP and lateral fluoroscopy. After negative aspiration for heme or cerebrospinal fluid, 3 mL of a solution containing 2 mL 40 mg per mL 80 mg total triamcinolone and 1 mL of lidocaine preservative free 1% was injected slowly. Needle retracted snf flushed with 1 mL of 1% lidocaine and then removed. Sterile bandage placed over injection site. No new motor deficits present in the lower extremities following procedure. The patient was taken to the recovery room in stable condition. She began to experience some numbness in the left foot and remained in our clinic for about 45 minutes after the procedure until the symptoms improved. There was only a loss of proprioception, no motor dysfunction. The proprioception returned without complication. She was discharged home. DO RAYMOND Alvares/EKT By: [id number] Ralph Vera DO /nt
[2020-11-25 10:11] VITALS: BP 134/56
--- NOTE | 2020-11-25 10:31 | NUR ---
Pain Clinic Assessment: 1. History of Osteoarthritis: BACK Left Lower Extremity Left Upper Extremity Right Upper Extremity Right Lower Extremity History of Rheumatoid Arthritis: DENIES 2. Height: 5 ft. 4 in. 162.6 cm. Weight: 165.8 lb. oz. 75.206 kg. Patient's BMI: 28.4 3. Vital Signs: BP: 134/56 Pulse: 72 Resp: 16 Temp: 02 Sat: 96 ECG Mon: 4. Pain Intensity: 9 5. Fall Risk: Dizziness: N Needs help standing or walking: N Fallen in the last 3 months: N Fall risk comments: 6. Patient on Blood Thinner: None 7. History of Hypertension: Y 8. Opioid Therapy greater than 6 weeks: N Opiate Contract Signed: 9. Risk Assessment Tool Provided: LOW-1 10. Functional Assessment Tool: 11. Recreational Drug Use: Never Drug Type: Tobacco Use: Never Smoker Tobacco Type: Amount or Packs/day: How Many Years: Alcohol Use: No Frequency: Quant:
== END | disposition home or self-care (01) ==
LOC: PAIN 06:57
PROVIDERS: ATTEND Anesthesiology Pain Medicine
DX: M51.16 Intervertebral disc disorders with radiculopathy, lumbar region (principal); M48.061 Spinal stenosis, lumbar region without neurogenic claudication; G89.29 Other chronic pain; I10 Essential (primary) hypertension; M19.90 Unspecified osteoarthritis, unspecified site; Z98.890 Other specified postprocedural states; Z79.899 Other long term (current) drug therapy; Z88.6 Allergy status to analgesic agent; Z88.8 Allergy status to other drugs, medicaments and biological substances

== ENCOUNTER 2020-12-25 10:57 | Emergency (ER) | payer OTHER ==
[~2020-12-25] VITALS: Ht 162.6 cm; Wt 73.9 kg
[2020-12-25 11:41] LABS: HEMATOCRIT 38.8 % (37.0-47.0); HEMOGLOBIN 12.9 gm/dL (12.0-15.0); MCH 30.2 pg (26.0-34.0); MCHC 33.2 g/dL (28.0-37.0); RBC 4.26 mil/uL (4.20-5.00); RDW 13.8 % (10.5-14.5); WBC 7.3 thou/uL (4.0-11.0)
[2020-12-25 11:46] LABS: URINE BILIRUBIN NEGATIVE (Negative); URINE BLOOD NEGATIVE (Negative); URINE CLARITY CLEAR; URINE COLOR YELLOW; URINE GLUCOSE-RANDOM* NEGATIVE (Negative); URINE KETONES NEGATIVE (Negative); URINE LEUKOCYTES-REFLEX 2+ (Negative); URINE NITRITE-REFLEX NEGATIVE (Negative); URINE PROTEIN (DIPSTICK) NEGATIVE (Negative); URINE UROBILINOGEN 0.2 E.U./dl (0.2-1.0)
[2020-12-25 12:00] LABS: SQUAMOUS 0-3 Few /LPF (0-3)
[2020-12-25 12:01] LABS: BACTERIA-REFLEX 1-9 Few /HPF (None Seen); CASTS None Seen /LPF (None Seen); CRYSTALS None Seen /LPF (None Seen); URINE RBC 1-2 Rare /HPF (NONE SEEN); URINE WBC-REFLEX 0-5 Rare /HPF (0-5)
--- NOTE | 2020-12-25 12:02 | EKG ---
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
[2020-12-25 12:07] LABS: ANION GAP 7 mmol/L (7-16); BUN 23 mg/dL (7-18); CALCIUM 9.3 mg/dL (8.5-10.1); CHLORIDE 102 mmol/L (98-107); CO2 30 mmol/L (21-32); CREATININE 1.2 mg/dL (0.6-1.0); GLUCOSE 93 mg/dL (74-106); POTASSIUM 3.6 mmol/L (3.5-5.1); SODIUM 139 mmol/L (136-145)
[2020-12-25 12:17] LABS: ALBUMIN 3.5 g/dL (3.4-5.0); MAGNESIUM 1.8 mg/dL (1.8-2.4); SGOT 40 U/L (15-37); SGPT 16 U/L (14-59); TOTAL BILIRUBIN 0.3 mg/dL (0.2-1.0); TOTAL PROTEIN 6.8 g/dL (6.4-8.2); TROPONIN-I <0.06 ng/mL (<0.06)
[2020-12-25] MEDS ORDERED: CEPHALEXIN500 MG PO (12:49)
[2020-12-25 13:30] VITALS: BP 119/56
== END 2020-12-25 13:30 | disposition home or self-care (01) ==
LOC: ER 10:57
PROVIDERS: Nurse Practitioner Family
DX: N39.0 Urinary tract infection, site not specified (principal); Z20.822 Contact with and (suspected) exposure to COVID-19; R53.1 Weakness; Z90.710 Acquired absence of both cervix and uterus; Z88.5 Allergy status to narcotic agent; Z88.8 Allergy status to other drugs, medicaments and biological substances

== ENCOUNTER 2021-01-04 14:46 | Emergency (ER) | payer OTHER ==
[~2021-01-04] VITALS: Ht 160 cm; Wt 73.9 kg
[~2021-01-04 14:46] MED LIST changes: +CEPHALEXIN500 MG PO
[2021-01-04 15:15] LABS: URINE BILIRUBIN NEGATIVE (Negative); URINE BLOOD 3+ (Negative); URINE CLARITY CLEAR; URINE COLOR YELLOW; URINE GLUCOSE-RANDOM* NEGATIVE (Negative); URINE KETONES NEGATIVE (Negative); URINE PROTEIN (DIPSTICK) 1+ (Negative); URINE SPECIFIC GRAVITY 1.015 (1.005-1.035); URINE UROBILINOGEN 0.2 E.U./dl (0.2-1.0)
[2021-01-04 15:21] LABS: URINE LEUKOCYTES-REFLEX 3+ (Negative); URINE NITRITE-REFLEX POSITIVE (Negative)
[2021-01-04 15:24] LABS: CASTS None Seen /LPF (None Seen); SQUAMOUS 0-3 Few /LPF (0-3); URINE RBC 3-10 Few /HPF (NONE SEEN); URINE WBC-REFLEX >25 Many /HPF (0-5)
[2021-01-04 15:25] LABS: BACTERIA-REFLEX >30 Many /HPF (None Seen); CRYSTALS None Seen /LPF (None Seen)
[2021-01-04 16:15] LABS: BASOPHILS 0.3 % (0.0-2.0); HEMATOCRIT 34.8 % (37.0-47.0); HEMOGLOBIN 11.3 gm/dL (12.0-15.0); LYMPHOCYTES 11.7 % (24.0-44.0); MCH 29.6 pg (26.0-34.0); MCHC 32.5 g/dL (28.0-37.0); MCV 91.1 fL (80.0-100.0); PLATELET COUNT 264 thou/uL (150-400); RBC 3.82 mil/uL (4.20-5.00); RDW 13.9 % (10.5-14.5); WBC 11.1 thou/uL (4.0-11.0)
[2021-01-04 16:20] LABS: CALCIUM 8.5 mg/dL (8.5-10.1); CREATININE 1.2 mg/dL (0.6-1.0); POTASSIUM 4.3 mmol/L (3.5-5.1)
[2021-01-04] MEDS ORDERED: DIFLUCAN150 MG PO (17:48)
[2021-01-04] MEDS ORDERED: LEVOFLOXACIN500 MG PO (17:48)
[2021-01-04 17:54] VITALS: BP 144/46
== END 2021-01-04 17:54 | disposition home or self-care (01) ==
LOC: ER 14:46
PROVIDERS: Emergency Medicine
DX: N39.0 Urinary tract infection, site not specified (principal); Z90.710 Acquired absence of both cervix and uterus; Z90.89 Acquired absence of other organs; Z79.899 Other long term (current) drug therapy; Z88.6 Allergy status to analgesic agent

== ENCOUNTER → 2021-01-27 | Outpatient (CLI) | payer OTHER ==
[~2021-01-27] VITALS: Ht 162.6 cm; Wt 74.1 kg
[~2021-01-27] MED LIST changes: +DIFLUCAN150 MG PO; +DULOXETINE HCL30 MG PO; +LEVOFLOXACIN500 MG PO; +LYRICA 75 MG CA75 MG PO
--- NOTE | ~2021-01-27 | HPC ---
[facility] [place] [address] PAIN MANAGEMENT CONSULTATION Name: NOLA RUSSO Room #: REG [facility] Yamileth.#: [id number] Admission: 01/27/21 Attend Phys: Ralph Vera DO Discharge: Date of : 36 Report #: [id number] THIS REPORT FOR: cc: Chilo Lopez MD, Neal A. MD Johnson, James E. DO ~ cc: Chilo Lopez MD DATE OF SERVICE: 01/27/2021 REFERRING PHYSICIAN: Dr. Chilo Lopez. CHIEF COMPLAINT: Low back pain, bilateral lower extremity pain with paresthesias. HISTORY OF PRESENT ILLNESS: As you know, the patient is a very pleasant 85-year-old female who unfortunately suffers from progressively worsening central canal stenosis of the lumbar spine. She has imaging from 2019, which showed severe central canal stenosis at L3-L4 causing lumbar radicular symptoms. She was referred to our clinic and has undergone epidural injections periodically with good improvement. Unfortunately, the most recent epidural injections have provided no benefit. The patient states her functional capacity is reduced significantly and she is unable to participate in daily activities due to that pain. She is now placing pain score 10/10. She returns today in followup visit with concerns that her capability of going about daily activity has reduced to the point where she can no longer function. She returns to discuss options for treatment. She denies injury or trauma that may have led to symptom progression. ALLERGIES: MORPHINE, CODEINE, DEMEROL, PHENOBARBITAL, PHENERGAN. CURRENT MEDICATIONS: Gabapentin 900 mg morning, 600 mg noon and 900 mg at night; metoprolol 25 mg p.o. at bedtime; hydrochlorothiazide 12.5 mg once a day; omeprazole 20 mg per day; cholecalciferol 1 tab per day; cyanocobalamin 500 mcg per day; duloxetine 60 mg once a day; calcium carbonate 1 tab per day; calcitriol 0.25 mg once a day; temazepam 30 mg p.o. at bedtime; aspirin 81 mg per day; levothyroxine 100 mcg per day. SOCIAL HISTORY: The patient denies tobacco, alcohol or IV or illicit drug use. She is accompanied by her daughter present in room today. IMAGING: No new imaging available. PQRS: The patient has known arthritic changes of lumbar spine, bilateral shoulders, bilateral hips, knees, hands and ankles. No rheumatoid arthritis. She is placing current pain score 10/10. She is a fall risk, but has not had a fall in last 3 months. She is not on blood thinners, but is treated for [address] [address] PAIN MANAGEMENT CONSULTATION Name: KARANNOLA J Room #: REG [facility] Rashad.#: [id number] Admission: 01/27/21 Attend Phys: Ralph Vera DO Discharge: Date of : 36 Report #: [id number] hypertension. She is not on chronic opioids, has a low opioid addiction potential based on our assessment tool. Pain impact is 70/70, complete interference of daily activities secondary to pain. PHYSICAL EXAMINATION: VITAL SIGNS: Blood pressure 154/85, pulse is 63, respiratory rate 18 and unlabored. The patient 100% on room air. Height 5 feet 4 inches tall, weight 163.4 pounds, BMI calculated 28.0. GENERAL: Well-developed, well-nourished, well-hydrated 85-year-old female appearing stated age, pain is rated today at 10/10. HEENT: Normocephalic, atraumatic. Pupils equal, round and responsive. She is wearing a mask in compliance with COVID-19 regulations. EXTREMITIES: Show no clubbing, no cyanosis, no appreciable edema. MUSCULOSKELETAL: Lower extremity strength is deconditioned bilaterally, but equal and symmetrical. She is able to sustain muscle contraction against force. Ankle clonus negative. Babinski is negative. Gait is antalgic. Stance is slightly forward flexed lumbar spine with loss of lordotic curvature. Seated straight leg raising positive. Supine straight leg raising positive. Fabere's test is negative. Modified Gaenslen's positive for axial low back pain. Lumbar provocation testing is met with increase in axial back pain. ASSESSMENT: 1. 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 2. Chronic lumbar radiculopathy. 3. Neural foraminal stenosis of lumbar spine. 4. Displacement of lumbar intervertebral disk with radiculopathy. 5. Lumbosacral spondylosis with radiculopathy. 6. Facet arthropathy of lumbar spine. 7. Chronic low back pain. PLAN: 1. The patient returns today in followup visit, unfortunately noticing no improvement in symptoms with previous epidural injection. The injection prior to that only gave transient improvement in symptoms. I do believe the patient's spinal stenosis has progressed and she is now experiencing symptoms more related to a mechanical process than an inflammatory process unless the epidural injections are no longer efficient or effective at treating symptoms. The patient and I discussed at length today the treatment options we have available. Given the level of pain the patient is experiencing and the loss of functional capabilities, I do feel that a more aggressive treatment will be necessary. The patient is agreeable with this plan and wishes to discuss her case with Neurosurgery. 2. The patient will be referred to see Neurosurgery of [facility] and discussed the surgical treatment options. I provided the patient with a referral to their clinic today. They are to contact that clinic over the next day or so to establish an appointment to see the nurse practitioner. This will [facility] [address] [place] [address] PAIN MANAGEMENT CONSULTATION Name: KARANNOLA SHIRLEY Room #: REG LORIN Franco#: [id number] Admission: 01/27/21 Attend Phys: Ralph Vera DO Discharge: Date of : 36 Report #: [id number] allow the patient to enter into their system more rapidly. She will contact our clinic either later today or first thing tomorrow. 3. We have recommended increasing the patient's duloxetine. She is currently taking 60 mg once a day. I have given her a prescription for duloxetine 30 mg tablets. She will take 1 tab p.o. q.a.m. and continue her 60 mg p.o. at bedtime for the next 7 days. If no improvement in symptoms, no side effects, then increase to 60 mg b.i.d. A prescription was sent for her medication today to begin that titration. She will watch for any side effects with its use. 4. We will start the patient on Lyrica 75 mg p.o. at bedtime. This will take the place of her current gabapentin. She was given a prescription of the medication to take as directed. She was given a titration to take the therapy, starting 1 at night for 3 nights. If no improvement in symptoms, no side effects, then increase to 2 tabs p.o. at bedtime at night or 150 mg p.o. at bedtime. Again, if no improvement in symptoms, no side effects, then increase to 75 mg in morning, 150 mg at night for another 3 nights and then escalate 250 mg b.i.d. if necessary. Prescription was sent via e-script to local pharmacy. 5. The patient was sent for MRI of the lumbar spine without contrast. This will be required for the patient to be seen by Neurosurgery. We will be comparing this to her 2019 imaging that we have that shows severe central canal stenosis at L3-L4. There will likely be progression of this issue, but also may have other issues needed to be addressed surgically. The patient will undergo the MRI imaging. Once this is completed, we will review those findings. 6. See the patient back in followup visit on an as needed basis. She will keep us apprised of surgical options that may be entertained. We did discuss with the patient spinal cord stimulator, but did advise the patient this would only provide improvement for a short period of time that can help with overall pain, but she is not interested in this device at this time. By: [id number] Ralph Vera DO /nt
[2021-01-27 13:11] VITALS: BP 154/85
--- NOTE | 2021-01-27 13:27 | NUR ---
Pain Clinic Assessment: 1. History of Osteoarthritis: BACK Left Lower Extremity Left Upper Extremity Right Upper Extremity Right Lower Extremity History of Rheumatoid Arthritis: DENIES 2. Height: 5 ft. 4 in. 162.6 cm. Weight: 163.4 lb. oz. 74.118 kg. Patient's BMI: 28.0 3. Vital Signs: BP: 154/85 Pulse: 63 Resp: 18 Temp: 02 Sat: 100 ECG Mon: 4. Pain Intensity: 10 5. Fall Risk: Dizziness: Y Needs help standing or walking: Y Fallen in the last 3 months: N Fall risk comments: 6. Patient on Blood Thinner: None 7. History of Hypertension: Y 8. Opioid Therapy greater than 6 weeks: N Opiate Contract Signed: 9. Risk Assessment Tool Provided: LOW-1 10. Functional Assessment Tool: 11. Recreational Drug Use: Never Drug Type: Tobacco Use: Never Smoker Tobacco Type: Amount or Packs/day: How Many Years: Alcohol Use: No Frequency: Quant:
== END ==
LOC: PAIN 09:49
PROVIDERS: ATTEND Anesthesiology Pain Medicine
DX: M51.16 Intervertebral disc disorders with radiculopathy, lumbar region (principal); M48.061 Spinal stenosis, lumbar region without neurogenic claudication; G89.29 Other chronic pain; Z79.891 Long term (current) use of opiate analgesic; Z79.899 Other long term (current) drug therapy

== ENCOUNTER → 2021-01-29 | Outpatient (CLI) | payer OTHER | LOC: MRI 12:48 | PROVIDERS: ATTEND Anesthesiology Pain Medicine | DX: M48.07 Spinal stenosis, lumbosacral region (principal); M54.16 Radiculopathy, lumbar region ==

== ENCOUNTER → 2021-03-04 | Outpatient (CLI) | payer OTHER ==
[~2021-03-04] VITALS: Ht 162.6 cm; Wt 78.6 kg
[~2021-03-04] MED LIST changes: -CALCIUM 500 +1 EACH PO; +CALCIUM 500 MG1 EAC1 PO; +CYMBALTA30 MG PO; +FUROSEMIDE 20 M20 M1 PO; +KLOR-CON 10 ER10 MEQ PO; +LYRICA150 MG PO; +MOBIC7.5 MG PO; +NEXIUM40 MG PO; +ROCALTROL0.25 MCG PO; +VITAMIN B-121000 MC2 PO; +VITAMIN D250 MC1 PO
--- NOTE | ~2021-03-04 | HPC ---
[facility] [address]i [address] [place] [address] PAIN MANAGEMENT CONSULTATION Name: NOLA RUSSO Room #: REG LORIN Franco#: [id number] Admission: 03/04/21 Attend Phys: Dana Bro Discharge: Date of : 36 Report #: [id number] THIS REPORT FOR: cc: Chilo Lopez MD, Neal A. MD Hocker,Dana NOBLE ~ cc: Chilo Lopez MD, Ralph Vera DO DATE OF SERVICE: 03/04/2021 CHIEF COMPLAINT: Low back pain, bilateral lower extremity pain, and paresthesias. HISTORY OF PRESENT ILLNESS: This is a very pleasant 85-year-old female who returns to the pain clinic today to discuss her medications. The patient reports to me that she has had surgery with Dr. Delgadillo since we have last seen her in January. She did have a successful surgery and today denies any back or leg pain. She has a scar on the left lumbar region that is well healed, but she is unsure of exact procedure, Dr. Delgadillo performed. She is here alone today for our visit. The patient reports that since we have seen her last, she has been to the Emergency Room with a urinary tract infection, was on antibiotics and she has also had a fall at home where she had a syncopal episode. She did not seek any medical attention after that fall, but her family was present. She is here with a list of medications because she is unclear with some of the dosages and what medication she should be taking. The patient reports that she has occasional tenderness in the low back, but overall she feels that she is so much improved from her surgery and unsure if she should continue any of her medications. ALLERGIES: PROMETHAZINE. CURRENT LIST OF MEDICATIONS: Lyrica 150 mg b.i.d., meloxicam 7.5 mg daily, vitamin B12, vitamin D2, metoprolol 25 mg daily, Nexium [id number], vitamin D3, Cymbalta 60 mg b.i.d., Synthroid 112 mcg daily, aspirin, Restoril 30 mg at bedtime, calcitriol 0.2 mcg daily, and calcium daily. PQRS: 1. She has osteoarthritic changes in her back as well as her upper and lower extremities. Denies any rheumatoid arthritis. 2. Height is 5 feet 4 inches, weight is 173. BMI is 29.7. 3. Vital signs: Blood pressure 102/52, pulse is 81, respirations 16, oxygen sat is 100. Pain score is 0. Fall risk; denies dizziness currently, but she has fallen as a syncopal episode in the past 3 months. The patient does not need any assistance with ambulation. 4. The patient is not on any blood thinners, but does take medicine for hypertension. 5. Opioid therapy is greater than 6 weeks; therefore, an opioid signed contract [address] [address] PAIN MANAGEMENT CONSULTATION Name: NOLA RUSSO Room #: SHEREE Franco#: [id number] Admission: 03/04/21 Attend Phys: Dana Bro Discharge: Date of : 36 Report #: [id number] is on the chart. 6. Risk assessment is low. Functional assessment is 32/70. 7. Recreational drug use, she denies. She is not a smoker and does not drink alcohol. PHYSICAL EXAMINATION: GENERAL: This is alert and orientated, somewhat forgetful, 85-year-old female who is here alone today. She is well hydrated, well nourished, rating her pain score as 0/10. HEENT: Normocephalic, atraumatic. Pupils are equal, round and reactive. She is wearing a mask in compliance with COVID. EXTREMITIES: No clubbing, no cyanosis. She has 1+ edema in her left lower extremity. MUSCULOSKELETAL: Lower extremity strength is deconditioned bilaterally, but equal. Her gait is antalgic. She has a slightly lordotic curve in her lumbar spine and stands slightly flexed forward. She denies any low back pain currently. IMPRESSION: 1. Post lumbar surgery for severe central stenosis of lumbar spine. Chronic lumbar radiculopathy. 2. Neural foraminal stenosis of lumbar spine. 3. Displacement of lumbar intervertebral disk with radiculopathy. 4. Lumbosacral spondylosis with radiculopathy. 5. Facet arthroscopy of the lumbar spine. 6. Medication management. 7. She has a well-healed scar in the lumbar region of her back. No redness noted. PLAN: 1. We discussed treatment options with the patient today. The patient had seen Dr. Ralph Vera in January. At that time, he did perform a lumbar epidural steroid injection that was not beneficial in controlling any of her pain. He then sent her to the neurosurgeon where she underwent lumbar surgery. She is unsure of what procedure was performed. She now denies any back or leg pain. 2. Based on the findings that the patient presents with no pain, today I believe that we will try to decrease her Lyrica dose. Currently, she is taking 150 mg twice a day. I have instructed her to decrease her Lyrica to 75 mg in the morning and 150 mg at night for 1 week, then decrease her Lyrica to 75 mg b.i.d. The patient will follow up within 1 month and we may decrease this further. 3. The patient does have some lower extremity edema present today. She reports a history of furosemide use and then hydrochlorothiazide. She had been off these medications for a while. Her weight is up 10 pounds today from our visit 1 month ago. She does report seeing Maynor Regalado, nurse practitioner at Dr. Lopez's office who prescribed Lasix and potassium to her. The patient is [address] [address] PAIN MANAGEMENT CONSULTATION Name: NOLA RUSSO Room #: REG [facility].#: [id number] Admission: 03/04/21 Attend Phys: Dana Bro Discharge: Date of : 36 Report #: [id number] unsure of the dose, but will call us with that information later today. Hopefully, the edema is not related to her Lyrica, but to her diuretic. We will follow up on this in 1 month. 4. The patient continues on Cymbalta. Currently, she takes 60 mg b.i.d. The patient was kind of was unsure of the dose. She says that the nurse practitioner sent the prescription yesterday to her pharmacy. The patient instructed to notify us what the dosage is of the medication at home. We will consider titrating this medication down at her next appointment, if she continues to do well. 5. The patient does report a low blood pressure today of 102/52. She does take metoprolol at bedtime. I encouraged her to discuss this with prescriber may be moving that medication to the morning since she is having some syncopal episodes. Appointment made for 1 month. Time spent with the patient in consultation, reviewing recent studies and clinical notes and physician reports, physical examination and correlation of physical findings and medical documentation need to determine possible treatment option 16 minutes. Time spent in preparation for appointment, reviewing prescription monitoring, system reports, reviewing previous records and proposed treatment options and reviewing current medications 5 minutes. Time spent with preparing and sending electronic prescriptions with collaborating physician, Dr. Ralph Vera, and documentation of visit and plan of treatment 5 minutes. Total time spent 27 minutes. By: [id number] Dana Bro /regina
[2021-03-04 10:27] VITALS: BP 102/52
--- NOTE | 2021-03-04 11:07 | NUR ---
Pain Clinic Assessment: 1. History of Osteoarthritis: BACK Left Lower Extremity Left Upper Extremity Right Upper Extremity Right Lower Extremity History of Rheumatoid Arthritis: DENIES 2. Height: 5 ft. 4 in. 162.6 cm. Weight: 173.2 lb. oz. 78.563 kg. Patient's BMI: 29.7 3. Vital Signs: BP: 102/52 Pulse: 81 Resp: 16 Temp: 02 Sat: 100 ECG Mon: 4. Pain Intensity: 0 5. Fall Risk: Dizziness: N Needs help standing or walking: N Fallen in the last 3 months: Y Fall risk comments: 6. Patient on Blood Thinner: None 7. History of Hypertension: Y 8. Opioid Therapy greater than 6 weeks: N Opiate Contract Signed: 9. Risk Assessment Tool Provided: LOW-1 10. Functional Assessment Tool: 11. Recreational Drug Use: Never Drug Type: Tobacco Use: Never Smoker Tobacco Type: Amount or Packs/day: How Many Years: Alcohol Use: No Frequency: Quant:
== END ==
LOC: PAIN 07:06
PROVIDERS: ATTEND Clinical Nurse Specialist Adult Health
DX: M48.061 Spinal stenosis, lumbar region without neurogenic claudication (principal); M47.26 Other spondylosis with radiculopathy, lumbar region; G89.29 Other chronic pain; Z79.899 Other long term (current) drug therapy; Z79.891 Long term (current) use of opiate analgesic

== ENCOUNTER 2021-03-31 12:18 | Emergency (ER) | payer OTHER ==
[~2021-03-31] VITALS: Ht 157.5 cm; Wt 73.0 kg
[2021-03-31 12:42] LABS: ABSOLUTE NEUTROPHILS 3.2 thou/uL (1.4-8.2); BASOPHILS 1.3 % (0.0-2.0); EOSINOPHILS 3.3 % (0.0-3.0); HEMATOCRIT 30.4 % (37.0-47.0); HEMOGLOBIN 9.5 gm/dL (12.0-15.0); LYMPHOCYTES 25.5 % (24.0-44.0); MCH 26.1 pg (26.0-34.0); MCHC 31.2 g/dL (28.0-37.0); MCV 83.5 fL (80.0-100.0); PLATELET COUNT 362 thou/uL (150-400); POLYS 61.9 % (36.0-66.0); RBC 3.65 mil/uL (4.20-5.00); RDW 15.3 % (10.5-14.5); WBC 5.2 thou/uL (4.0-11.0)
[2021-03-31 12:58] LABS: CALCIUM 9.4 mg/dL (8.5-10.1); CREATININE 1.2 mg/dL (0.6-1.0)
[2021-03-31 13:01] LABS: ALBUMIN 3.4 g/dL (3.4-5.0); TOTAL BILIRUBIN 0.2 mg/dL (0.2-1.0); TOTAL PROTEIN 6.8 g/dL (6.4-8.2)
[2021-03-31 13:37] LABS: URINE BILIRUBIN NEGATIVE (Negative); URINE BLOOD NEGATIVE (Negative); URINE CLARITY CLEAR; URINE COLOR YELLOW; URINE GLUCOSE-RANDOM* NEGATIVE (Negative); URINE KETONES NEGATIVE (Negative); URINE NITRITE-REFLEX NEGATIVE (Negative); URINE PROTEIN (DIPSTICK) NEGATIVE (Negative); URINE SPECIFIC GRAVITY 1.015 (1.005-1.035); URINE UROBILINOGEN 0.2 E.U./dl (0.2-1.0)
[2021-03-31 13:38] LABS: URINE LEUKOCYTES-REFLEX 1+ (Negative)
[2021-03-31 13:54] LABS: BACTERIA-REFLEX 1-9 Few /HPF (None Seen); CASTS None Seen /LPF (None Seen); CRYSTALS None Seen /LPF (None Seen); SQUAMOUS 0-3 Few /LPF (0-3); URINE RBC None Seen /HPF (NONE SEEN); URINE WBC-REFLEX 6-15 Few /HPF (0-5)
--- NOTE | 2021-03-31 14:48 | EKG ---
[facility] [employer] [address] ELECTROCARDIOGRAM REPORT Name: ABDULLAHI RUSSOSHAHZAD Conroy Room #: REG [facility]#: [id number] Admission: 03/31/21 Attend Phys: Discharge: Date of : 36 Report #: [id number] [facility] ED Test Date: 2021-03-31 Test Time: 12:27:51 Pat Name: NOLA RUSSO Department: Room: Gender: F [employer] Operator: kalpana : 1935 Requested By: Amauri Onofre Order Number: [id number] MD: Chance Marlow Measurements Intervals [place] Rate: 68 P: 36 NE: 148 QRS: -8 QRSD: 141 T: 28 QT: 413 QTc: 440 Interpretive Statements Sinus rhythm Left bundle branch block Baseline wander in lead(s) II,III,aVR,aVL,aVF Compared to ECG 12/25/2020 11:55:42 No significant changes Electronically Signed On 03-31-2021 14:48:49 CDT by Chance Marlow [email or web address] <ELECTRONICALLY SIGNED> By: Chance Marlow MD, [facility] 03/31/21 1448 1227 Chance Marlow MD, FAC /EPI
[2021-03-31] MEDS ORDERED: LEVOFLOXACIN500 MG PO (15:17)
[2021-03-31] MEDS ORDERED: DIFLUCAN200 MG PO (15:17)
[2021-03-31 15:48] VITALS: BP 146/55
== END 2021-03-31 15:49 | disposition home or self-care (01) ==
LOC: ER 12:18
PROVIDERS: Emergency Medicine; Nurse Practitioner
DX: R53.83 Other fatigue (principal); Z20.822 Contact with and (suspected) exposure to COVID-19; T50.B95A Adverse effect of other viral vaccines, initial encounter; Z90.710 Acquired absence of both cervix and uterus; Z90.89 Acquired absence of other organs; Z79.82 Long term (current) use of aspirin; Z79.1 Long term (current) use of non-steroidal anti-inflammatories (NSAID); Z79.891 Long term (current) use of opiate analgesic; Z79.899 Other long term (current) drug therapy; Z88.6 Allergy status to analgesic agent; Z88.5 Allergy status to narcotic agent; Z88.8 Allergy status to other drugs, medicaments and biological substances; Y92.89 Other specified places as the place of occurrence of the external cause

== ENCOUNTER 2021-07-20 12:56 | Emergency (ER) | payer OTHER ==
[~2021-07-20] VITALS: Ht 162.6 cm; Wt 74.8 kg
[~2021-07-20 12:56] MED LIST changes: +DIFLUCAN200 MG PO
[2021-07-20 15:41] LABS: HEMATOCRIT 35.9 % (37.0-47.0); HEMOGLOBIN 11.6 gm/dL (12.0-15.0); MCH 27.2 pg (26.0-34.0); MCHC 32.2 g/dL (28.0-37.0); MCV 84.6 fL (80.0-100.0); PLATELET COUNT 242 thou/uL (150-400); RBC 4.25 mil/uL (4.20-5.00); RDW 20.9 % (10.5-14.5); WBC 13.5 thou/uL (4.0-11.0)
[2021-07-20 15:58] LABS: CALCIUM 8.6 mg/dL (8.5-10.1); CREATININE 1.3 mg/dL (0.6-1.0); POTASSIUM 3.8 mmol/L (3.5-5.1)
[2021-07-20 16:04] LABS: ALBUMIN 3.2 g/dL (3.4-5.0); TOTAL BILIRUBIN 0.4 mg/dL (0.2-1.0); TOTAL PROTEIN 6.1 g/dL (6.4-8.2)
[2021-07-20 16:14] LABS: ABSOLUTE NEUTROPHILS 11.9 thou/uL (1.4-8.2); ANISOCYTOSIS 1+
[2021-07-20 16:25] LABS: URINE BILIRUBIN NEGATIVE (Negative); URINE BLOOD 2+ (Negative); URINE CLARITY CLEAR; URINE COLOR YELLOW; URINE GLUCOSE-RANDOM* NEGATIVE (Negative); URINE KETONES TRACE (Negative); URINE LEUKOCYTES-REFLEX NEGATIVE (Negative); URINE NITRITE-REFLEX NEGATIVE (Negative); URINE PROTEIN (DIPSTICK) NEGATIVE (Negative); URINE UROBILINOGEN 0.2 E.U./dl (0.2-1.0)
[2021-07-20 16:36] LABS: SQUAMOUS 4-10 Moderate /LPF (0-3)
[2021-07-20 16:38] LABS: BACTERIA-REFLEX 1-9 Few /HPF (None Seen); CASTS None Seen /LPF (None Seen); URINE WBC-REFLEX 6-15 Few /HPF (0-5)
[2021-07-20 16:39] LABS: CRYSTALS None Seen /LPF (None Seen); URINE RBC 3-10 Few /HPF (NONE SEEN)
[2021-07-20] MEDS ORDERED: CIPRO500 M1 PO (19:18)
[2021-07-20 19:45] VITALS: BP 118/42
== END 2021-07-20 19:58 | disposition home or self-care (01) ==
LOC: ER 12:56
PROVIDERS: Nurse Practitioner
DX: N30.01 Acute cystitis with hematuria (principal); Z20.822 Contact with and (suspected) exposure to COVID-19; Z90.710 Acquired absence of both cervix and uterus; Z90.89 Acquired absence of other organs; Z08 Encounter for follow-up examination after completed treatment for malignant neoplasm; Z85.820 Personal history of malignant melanoma of skin; Z79.899 Other long term (current) drug therapy; Z79.82 Long term (current) use of aspirin; Z79.1 Long term (current) use of non-steroidal anti-inflammatories (NSAID); Z88.5 Allergy status to narcotic agent; Z88.6 Allergy status to analgesic agent; Z88.8 Allergy status to other drugs, medicaments and biological substances